=== PATIENT | male | born 1950 | race Caucasian/White ===

== ENCOUNTER 2016-11-28 19:20 | Emergency (ER) | payer OTHER ==
[~2016-11-28] VITALS: Ht 185.4 cm; Wt 101.2 kg
[2016-11-28] MEDS ORDERED: LORAZEPAM 0.5 MG (19:41)
[2016-11-28] MEDS ORDERED: AMLODIPINE BESYLATE 10 MG TABS (19:41)
[2016-11-28] MEDS ORDERED: GABAPENTIN 300 MG CAPS (19:41)
[2016-11-28] MEDS ORDERED: LAMOTRIGINE 25 MG (19:41)
[2016-11-28] MEDS ORDERED: IV NORMAL SALINE 500 ML BAG IV ONE ×2 (19:45→21:45)
--- NOTE | 2016-11-28 19:45 | NUR ---
Pt biba for syncopal episode at the [place] today. Pt arrived alert and oriented x 4, no neuro deficits noted, pt in c-collar. Pt admits to hitting head and LOC. Length of LOC unknown. Pt c/o moderate neck pain. Pt NSR on the monitor. Resp even and unlabored. No obvious signs of distress. Pt seen by MD. Labs drawn and sent. EKG obtained. Fluid bolus infusing freely to gravity.
[2016-11-28 19:48] LABS: BASOPHILS # (AUTO) 0.1 K/uL (0.0-8.0); BASOPHILS % (AUTO) 0.8 % (0.0-2.0); EOSINOPHILS # (AUTO) 0.1 K/uL (0.0-0.7); EOSINOPHILS % (AUTO) 0.8 % (0.0-7.0); HEMATOCRIT 38.6 % (40-50); HEMOGLOBIN 12.8 G/DL (14.0-18.0); LYMPHOCYTES # (AUTO) 2.4 K/UL (0.8-4.8); LYMPHOCYTES % (AUTO) 13.7 % (20.5-51.5); MEAN CORPUSCULAR HEMOGLOBIN 28.3 UUG (27.0-31.0); MEAN CORPUSCULAR HGB CONC 33 g/dL (32.0-37.0); MEAN CORPUSCULAR VOLUME 85.5 FL (82.0-92.0); MONOCYTES % (AUTO) 5.6 % (0.0-11.0); NEUTROPHILS # (AUTO) 13.7 K/UL (1.8-8.9); NEUTROPHILS % (AUTO) 79.1 % (38.5-71.5); PLATELET COUNT (AUTO) 298 K/UL (150-450); RED BLOOD CELL COUNT(AUTO) 4.51 MIL/UL (4.7-6.1); WHITE BLOOD COUNT (AUTO) 17.3 K/UL (4.0-11.2)
[2016-11-28 19:56] LABS: POTASSIUM 4.2 mmol/L (3.5-5.1)
[2016-11-28 20:02] LABS: BILIRUBIN,DIRECT 0.1 mg/dL (0.0-0.2); BILIRUBIN,TOTAL 0.8 mg/dL (0.2-1.0); ETHANOL < 3 MG/DL (0-0); TOTAL PROTEIN, SERUM 7.1 g/dL (6.4-8.2)
--- NOTE | 2016-11-28 20:30 | NUR ---
Pt to and from CT via gur[facility]a. Pt resting in position of comfort for self. C-collar no longer on pt. Pt no complaints at this time.
--- NOTE | 2016-11-28 21:24 | NUR ---
Spoke with Raymundo EPRP, vital signs reported, Zackary MCCLAIN will be paged to speak with AL.
--- NOTE | 2016-11-28 21:27 | NUR ---
AL speaking with Dr. JACOME from [place].
--- NOTE | 2016-11-28 21:54 | NUR ---
Urine Specimen collected and sent to laboratory.
[2016-11-28 22:02] LABS: *BILIRUBIN,URIN NEGATIVE (NEGATIVE); *BLOOD, URINE 2+ (NEGATIVE); *CLARITY,URINE CLEAR (CLEAR); *COLOR,URINE YELLOW (YELLOW); *KETONES,URINE NEGATIVE (NEGATIVE); *PROTEIN,URINE NEGATIVE (NEGATIVE); *UROBILINOGEN,URINE 0.2 E.U./dl (NORMAL); LEUKOCYTE ESTERASE ,URINE TRACE (NEGATIVE); NITRITE, URINE NEGATIVE (NEGATIVE); PH,URINE 5.5 (5.0-8.0); UGLUCOSE NEGATIVE (NEGATIVE)
[2016-11-28 22:11] LABS: MUCUS,URINE FEW /LPF (0-FEW)
[2016-11-28 22:18] LABS: *AMPHETAMINE, URINE NEGATIVE (NEGATIVE); *BARBITURATE, URINE NEGATIVE (NEGATIVE); *CANNABINOID, URINE POSITIVE (NEGATIVE); *COCCAINE, URINE NEGATIVE (NEGATIVE); *OPIATE, URINE NEGATIVE (NEGATIVE); *PHENCYCLIDINE SCREEN,URINE NEGATIVE (NEGATIVE)
--- NOTE | 2016-11-28 23:13 | NUR ---
Report called to SHELBY Steinberg at [facility]. ALS ambulance at bedside to transfer pt. Pt resting in position of comfort for self. Resp even and unlabored. No complaints at this time.
== END 2016-11-28 23:25 | disposition short-term general hospital (02) ==
LOC: ER 19:25
DX: R55 Syncope and collapse (principal); E86.0 Dehydration; E78.5 Hyperlipidemia, unspecified; N18.9 Chronic kidney disease, unspecified; I10 Essential (primary) hypertension; F31.9 Bipolar disorder, unspecified
CPT/HCPCS: 36415; 70030-TC; 70450; 71010; 72125; 80307; 85025; 85730; 93005; A4663; G0480